=== PATIENT | female | born 1975 | race Caucasian/White ===

== ENCOUNTER 2023-07-20 05:02 | Emergency (ER) | payer BC ==
[~2023-07-20] VITALS: Ht 165.1 cm; Wt 64.1 kg
[2023-07-20 05:04] VITALS: TEMP 97.6
[2023-07-20] MEDS: LIDOcaine 2% Viscous 15ml cup MM ONE (05:56)
[2023-07-20] MEDS: ondansetron/PF 4mg/2ml inj IV ONE (05:56)
[2023-07-20] MEDS: pantoprazole 40 MG vial IV ONE (05:56)
[2023-07-20] MEDS: famotidine/PF 10 mg/ml inj IV ONE (05:56)
[2023-07-20] MEDS: mag hydrox/Alum hydrox/simeth 30ml oral suspension PO ONE (05:56)
[2023-07-20] MEDS: normal saline 1000ML IV soln IVB ONE (05:57)
[2023-07-20 06:04] LABS: URINE HCG NEGATIVE (NEG)
[2023-07-20 06:07] LABS: BILIRUBIN,URINE NEGATIVE (Neg); CLARITY,URINE CLEAR (Clear); COLOR,URINE YELLOW (Yellow); GLUCOSE, URINE NEGATIVE (Neg); KETONES,URINE TRACE mg/dl (Neg); LEUKOCYTE ESTERASE ,URINE NEGATIVE (Neg); NITRITES, URINE NEGATIVE (Neg); OCCULT BLOOD,URINE NEGATIVE (Neg); PH,URINE 5.5 (4.8-8.0); PROTEIN,URINE NEGATIVE (Neg); UROBILINOGEN,URINE 0.2 E.U/dL (0.2-1.0)
[2023-07-20 06:09] LABS: BASOPHILS % (AUTO) 0.5 % (0-1); EOSINOPHILS # (AUTO) 0.2 X10'3 (0-0.9); EOSINOPHILS % (AUTO) 3.5 % (0-6); HEMATOCRIT 45.1 % (35.0-45.0); HEMOGLOBIN 15.3 g/dl (12.0-16.0); LYMPHOCYTES # (AUTO) 1.6 X10'3 (1.1-4.8); LYMPHOCYTES % (AUTO) 25.6 % (21-51); MEAN CORPUSCULAR HEMOGLOBIN 30.1 PG (27.0-31.0); MEAN CORPUSCULAR VOLUME 88.7 FL (78-98); MEAN PLATELET VOLUME 8.2 FL (7.4-10.4); MONOCYTES # (AUTO) 0.4 X10'3 (0-0.9); MONOCYTES % (AUTO) 7.1 % (2-12); NEUTROPHILS % (AUTO) 63.3 % (42-75); PLATELET COUNT 244 X10'3 (140-440); RED BLOOD COUNT 5.08 X10'6 (4.20-5.60); RED CELL DISTRIBUTION WIDTH 13.8 % (11.5-14.5); WHITE BLOOD COUNT 6.3 X10'3 (4.5-11.0)
[2023-07-20 06:15] LABS: ALANINE AMINOTRANSFERASE 29 U/L (12-78); ALBUMIN 4.4 G/DL (3.4-5.0); ALBUMIN/GLOBULIN RATIO 1.1 (1.1-1.5); ALKALINE PHOSPHATASE 61 IU/L (46-116); ANION GAP 9 (8-16); ASPARTATE AMINO TRANSFERASE 21 U/L (10-37); BILIRUBIN,TOTAL 0.7 MG/DL (0.1-1.0); BLOOD UREA NITROGEN 13 MG/DL (7-18); BUN/CREATININE RATIO 14.4 (10.0-20.0); CALCIUM 9.4 MG/DL (8.5-10.1); CHLORIDE 102 MMOL/L (99-107); GLUCOSE 102 MG/DL (70-104); LIPASE 29 U/L (16-77); POTASSIUM 3.3 MMOL/L (3.5-5.1); SODIUM 141 MMOL/L (135-145); TOTAL PROTEIN 8.3 G/DL (6.4-8.2); UA COLLECTION TYPE CLN CATCH MIDSTREAM; eCRCL 70 ML/MIN; eGFR 67 ML/MIN
[2023-07-20 07:01] VITALS: BP 113/70; PULSE 46; RESP 14; O2SAT 98
[2023-07-20] MEDS ORDERED: FAMO-129 PO (08:00)
[2023-07-20] MEDS ORDERED: ONDA4TAB12 PO (08:00)
[2023-07-20] MEDS ORDERED: SIME125C PO (08:00)
== END 2023-07-20 08:14 | disposition home or self-care (01) ==
LOC: ER 05:03
DX: R11.2 Nausea with vomiting, unspecified (principal); R10.10 Upper abdominal pain, unspecified; Z79.899 Other long term (current) drug therapy; Z90.710 Acquired absence of both cervix and uterus
CPT/HCPCS: 36415; 76700; 80053; 81003; 81025; 83690; 85025; 96374; 96375; 99285; C9113; J2405; J3490; J7030

== ENCOUNTER 2023-08-11 16:17 | Emergency (ER) | payer BC ==
[~2023-08-11] VITALS: Ht 165.1 cm; Wt 60.0 kg
[~2023-08-11 16:17] MED LIST: FAMO-129 PO; ONDA4TAB12 PO; SIME125C PO
[2023-08-11 16:19] VITALS: BP 160/76; PULSE 50; TEMP 97.9; O2SAT 100
[2023-08-11 17:22] LABS: URINE HCG NEGATIVE (NEG)
[2023-08-11 17:44] LABS: BASOPHILS % (AUTO) 0.6 % (0-1); EOSINOPHILS # (AUTO) 0.1 X10'3 (0-0.9); EOSINOPHILS % (AUTO) 2.6 % (0-6); HEMOGLOBIN 14.1 g/dl (12.0-16.0); LYMPHOCYTES # (AUTO) 2.1 X10'3 (1.1-4.8); LYMPHOCYTES % (AUTO) 39.1 % (21-51); MEAN CORPUSCULAR HEMOGLOBIN 29.9 PG (27.0-31.0); MEAN CORPUSCULAR HGB CONC 33.6 g/dL (33.0-36.5); MEAN CORPUSCULAR VOLUME 89.1 FL (78-98); MEAN PLATELET VOLUME 7.7 FL (7.4-10.4); MONOCYTES # (AUTO) 0.3 X10'3 (0-0.9); MONOCYTES % (AUTO) 5.6 % (2-12); NEUTROPHILS # (AUTO) 2.8 X10'3 (1.8-7.7); NEUTROPHILS % (AUTO) 52.1 % (42-75); PLATELET COUNT 211 X10'3 (140-440); RED BLOOD COUNT 4.71 X10'6 (4.20-5.60); RED CELL DISTRIBUTION WIDTH 13.4 % (11.5-14.5); WHITE BLOOD COUNT 5.3 X10'3 (4.5-11.0)
[2023-08-11 17:54] LABS: BILIRUBIN,URINE NEGATIVE (Neg); CLARITY,URINE CLOUDY (Clear); COLOR,URINE YELLOW (Yellow); GLUCOSE, URINE NEGATIVE (Neg); KETONES,URINE NEGATIVE (Neg); LEUKOCYTE ESTERASE ,URINE NEGATIVE (Neg); NITRITES, URINE NEGATIVE (Neg); OCCULT BLOOD,URINE NEGATIVE (Neg); PROTEIN,URINE NEGATIVE (Neg); UROBILINOGEN,URINE 0.2 E.U/dL (0.2-1.0)
[2023-08-11 18:00] LABS: ALANINE AMINOTRANSFERASE 27 U/L (12-78); ALBUMIN/GLOBULIN RATIO 1.2 (1.1-1.5); ALKALINE PHOSPHATASE 44 IU/L (46-116); ANION GAP 8 (8-16); ASPARTATE AMINO TRANSFERASE 12 U/L (10-37); BILIRUBIN,TOTAL 0.7 MG/DL (0.1-1.0); BLOOD UREA NITROGEN 9 MG/DL (7-18); BUN/CREATININE RATIO 9.6 (10.0-20.0); CALCIUM 9.1 MG/DL (8.5-10.1); CHLORIDE 105 MMOL/L (99-107); CREATININE 0.94 MG/DL (0.40-0.90); GLUCOSE 97 MG/DL (70-104); LIPASE 33 U/L (16-77); POTASSIUM 3.4 MMOL/L (3.5-5.1); SODIUM 144 MMOL/L (135-145); TOTAL CARBON DIOXIDE 31.2 MMOL/L (24-32); TOTAL PROTEIN 7.3 G/DL (6.4-8.2); eCRCL 67 ML/MIN; eGFR 64 ML/MIN
[2023-08-11 18:13] LABS: UA COLLECTION TYPE CLN CATCH MIDSTREAM
[2023-08-11 18:27] LABS: MUCUS STRANDS MODERATE /LPF (Neg); SQUAMOUS EPITHELIAL CELL,UR MANY /LPF (FEW)
[2023-08-11 18:33] LABS: BACTERIA,URINE 1+ /HPF (Neg); RBC,URINE 0-2 /HPF (0-2); WBC,URINE 0-4 /HPF (0-4)
[2023-08-11 20:02] VITALS: RESP 16
[2023-08-11] MEDS: HYDROcodone/acetaminophen 5mg/325mg tablet PO ONE (20:02)
[2023-08-11] MEDS: normal saline 1000ml 1,000 ML IV ONE (20:03)
[2023-08-11] MEDS: metoclopramide 5 mg/ml inj IV ONE (20:05)
[2023-08-11] MEDS: diphenhydrAMINE 50 mg/ml inj IV ONE (20:05)
[2023-08-11] MEDS ORDERED: DICY20TA17 PO (20:49)
[2023-08-11] MEDS ORDERED: DIPH25CA83 PO (20:49)
[2023-08-11] MEDS ORDERED: METO10TA3 PO (20:49)
== END 2023-08-11 21:03 | disposition home or self-care (01) ==
LOC: ER 16:17
DX: K52.9 Noninfective gastroenteritis and colitis, unspecified (principal); R11.10 Vomiting, unspecified; Z79.899 Other long term (current) drug therapy; Z90.710 Acquired absence of both cervix and uterus
CPT/HCPCS: 36415; 74176; 80053; 81001; 81025; 83690; 85025; 96361; 96374; 99285; J2765; J7030

== ENCOUNTER 2023-08-26 09:28 | Day surgery (SDC) | payer BC ==
[~2023-08-26] VITALS: Ht 165.1 cm; Wt 64.0 kg
[~2023-08-26 09:28] MED LIST changes: +DICY20TA17 PO; +DIPH25CA83 PO; +METO10TA3 PO; +ONDA-243 PO; -ONDA4TAB12 PO
[2023-08-26 10:03] VITALS: BP 149/81; PULSE 52; RESP 12
[2023-08-26] MEDS ORDERED: LIDOcaine 2% Viscous 15ml cup ONE (10:52)
[2023-08-26] MEDS ORDERED: fentaNYL/PF 50MCG/1 ML 2ML syringe ONE (10:53)
[2023-08-26] MEDS ORDERED: diphenhydrAMINE 50 mg/ml inj ONE (10:53)
[2023-08-26] MEDS ORDERED: MIDAZolam 1 MG/ML 5ML VIAL ONE (10:53)
[2023-08-26 11:50] VITALS: BP 121/61; PULSE 44; RESP 20; O2SAT 98
[2023-08-26 12:00] VITALS: BP 121/67; PULSE 42; RESP 20; O2SAT 97
[2023-08-26 12:10] VITALS: BP 107/66; PULSE 43; RESP 18; O2SAT 97
[2023-08-26 12:20] VITALS: BP 122/67; PULSE 44; RESP 15; O2SAT 97
== END 2023-08-26 12:34 | disposition home or self-care (01) ==
LOC: GI LAB 09:28
PROVIDERS: ATTEND Internal Medicine Gastroenterology
DX: R10.32 Left lower quadrant pain (principal); R10.13 Epigastric pain; K57.30 Diverticulosis of large intestine without perforation or abscess without bleeding; K29.50 Unspecified chronic gastritis without bleeding; K21.00 Gastro-esophageal reflux disease with esophagitis, without bleeding; K44.9 Diaphragmatic hernia without obstruction or gangrene
CPT/HCPCS: 43239; 45378; 99152; J1200; J2250; J3010; J7030; Z7512; A4620